=== PATIENT | male | born 1990 | race Caucasian/White ===

== ENCOUNTER 2017-01-10 12:14 | Outpatient (CLI) | payer MEDICAID ==
--- NOTE | 2017-01-10 17:06 | XRAY Report ---
SUPINE ABDOMEN: 01/10/2017 CLINICAL INDICATION: Abdominal pain. Supine views of the abdomen demonstrate a normal bowel gas pattern. No small bowel dilatation is see n. No abnormal calcifications are appreciated overlying either renal shadow. IMPRESSION: NO EVIDENCE OF BOWEL OBSTRUCTION OR NEPHROLITHIASIS. JOB #: [id number] EXT JOB #:[id number]
== END 2017-01-10 12:15 | disposition home or self-care (01) ==
LOC: DI.S 12:14
PROVIDERS: ATTEND Nurse Practitioner Family
DX: R10.9 Unspecified abdominal pain (principal)
CPT/HCPCS: 74000

== ENCOUNTER 2017-01-10 12:46 | Outpatient (CLI) | payer MEDICAID ==
[2017-01-10 18:15] LABS: BASOPHILS # (AUTO) 0.1 10^3/uL (0.0-0.1); BASOPHILS % (AUTO) 0.7 %; EOSINOPHILS # (AUTO) 0.1 10^3/uL (0.0-0.7); EOSINOPHILS % (AUTO) 1.5 %; HCT - HEMATOCRIT 46.3 % (42.0-52.0); HGB - HEMOGLOBIN 15.9 g/dL (14.0-18.0); LYMPHOCYTES # (AUTO) 3.2 10^3/uL (1.5-3.5); LYMPHOCYTES % (AUTO) 38.1 %; MEAN CORPUSCULAR HEMOGLOBIN 32.5 pg (27.0-31.0); MEAN CORPUSCULAR HGB CONC 34.3 g/dL (32.0-36.0); MEAN CORPUSCULAR VOLUME 94.7 fL (80.0-94.0); MEAN PLATELET VOLUME 8.8 fL (7.4-11.4); MONOCYTES # (AUTO) 0.6 10^3/uL (0.0-1.0); MONOCYTES % (AUTO) 7.6 %; NEUTROPHILS # (AUTO) 4.4 10^3/uL (1.5-6.6); NEUTROPHILS % (AUTO) 52.1 %; NUCLEATED RED BLOOD CELLS AUTO 0.1 /100WBC; RED BLOOD COUNT 4.89 10^6/uL (4.70-6.10); RED CELL DISTRIBUTION WIDTH 13.9 % (12.0-15.0); UNCORRECTED WHITE BLOOD COUNT 8.5 x10^3/uL; WHITE BLOOD COUNT 8.5 x10^3/uL (4.8-10.8)
[2017-01-10 18:26] LABS: ALBUMIN/GLOBULIN RATIO 1.5 (1.0-2.2); CALCIUM 9.6 mg/dL (8.5-10.3); CREATININE 0.7 mg/dL (0.6-1.2); POTASSIUM 3.9 mmol/L (3.5-5.0); TOTAL PROTEIN 7.8 g/dL (6.7-8.2)
[2017-01-10 18:53] LABS: THYROID STIMULATING HORMONE 1.18 uIU/mL (0.34-5.60)
[2017-01-11 10:40] LABS: TEST RESULT REPORT (())
[2017-01-13 16:21] LABS: HSV 1/2 IGM CONFIRMATORY IFA NEGATIVE (()); HSV 1/2 IGM INDEX 1.61 INDEX (()); HSV 2 IGG INDEX <0.90 INDEX (())
[2017-01-16 12:16] LABS: TEST RESULT REPORT (())
[2017-01-20 10:19] LABS: TEST RESULT REPORT (())
[2017-01-21 12:05] LABS: TEST CODE 36504
[2017-01-21 12:06] LABS: TEST CODE 4848
== END 2017-01-10 12:47 | disposition home or self-care (01) ==
LOC: LAB.F 12:46
PROVIDERS: ATTEND Nurse Practitioner Family
DX: R11.10 Vomiting, unspecified (principal)
CPT/HCPCS: 36415; 74000; 80053; 81599; 82150; 82607; 83690; 84443; 85025; 86592; 86694; 86695; 86696; 86705; 86708; 86803; 87389; 87491; 87591

== ENCOUNTER 2017-01-19 06:59 | Outpatient (CLI) | payer MEDICAID, OTHER ==
--- NOTE | 2017-01-19 11:34 | Ultrasound Report ---
COMPLETE ABDOMINAL ULTRASOUND: 01/19/2017 CLINICAL INDICATION: Acute abdominal pain. TECHNIQUE: Real-time scanning was performed with clearance representative static images obtained. FINDINGS: The liver measures 16.3 cm. There is fatty infiltration, with a small focus of fatty spari ng adjacent to the portal vein. No suspicious hepatic lesion is seen. The common bile duct measures 5 mm. The gallbladder is normal, as is the pancreas. The kidneys are normal, with the right measuring 10.6 cm and the left measuring 10.8 cm. The spleen measures 9 cm, and demonstrates normal echotexture . The abdominal aorta is normal in caliber throughout. The inferior vena cava is unremarkable. No armaan e fluid is present. IMPRESSION: FATTY INFILTRATION OF THE LIVER. NO EVIDENCE OF CHOLELITHIASIS OR BILIARY OBSTRUCTION. JOB #: [id number] EXT JOB #:[id number]
== END 2017-01-19 07:00 | disposition home or self-care (01) ==
LOC: DI 06:59
PROVIDERS: ATTEND Nurse Practitioner Family
DX: K76.0 Fatty (change of) liver, not elsewhere classified (principal)
CPT/HCPCS: 76700